=== PATIENT | female | born 1980 | race Caucasian/White ===

== ENCOUNTER 2022-08-12 10:15 | Emergency (ER) | payer OTHER, SELFPAY ==
[2022-08-12 10:22] VITALS: BP 143/87; PULSE 87; RESP 18; TEMP 36.6; O2SAT 98; BMI 44.1
--- NOTE | 2022-08-12 10:26 | CRLHL7_ITS ---
For Patients: As a result of the Century Cures Act, medical imaging exams and procedure reports are released immediately into your electronic medical record. You may view this report before your referring provider. If you have questions, please contact your health care provider. Indication: Injury Technique: A total of three views of the left foot were acquired. Comparison: None Findings: Bones: Nondisplaced intra-articular fracture at the base of the proximal phalanx of the left 5th digit Joint spaces: Unremarkable. Soft tissues: Small plantar dorsal calcaneal spurs Impression: Nondisplaced intra-articular fracture at the base of the proximal phalanx of the left 5th digit. Dictated by Hemanth Elaine MD @ 08/12/2022 10:58:57 AM (Electronically Signed)
[2022-08-12] MEDS: IBUPROFEN 200 MG TABLET 600 MG PO (10:29)
--- NOTE | 2022-08-12 10:47 | ED_ITS ---
HPI - Extremity Injury (Lower) General Chief Complaint: Extremity Pain/Injury, Lower Stated Complaint: Possible broken LT foot pinky toe Time Seen by Provider: 08/12/22 10:25 Source: patient Mode of arrival: ambulatory Limitations: no limitations History of Present Illness HPI Narrative: Patient is a nice 42-year-old female presents here with 5th toe injury on the left side, she was coming down the stairs and rolled her left foot and did up with a left 5th toe injury, she is able to bear weight and walk on her ankle, but it is sore and swollen over the left side of her toe. She is worried she might have fractured. Took some acetaminophen this morning, no numbness and tingling. No other injury. Denies snapping popping sensation. Related Data Home Medications Medication Instructions Recorded Confirmed citalopram .ROUTE 08/12/22 Allergies Allergy/AdvReac Type Severity Reaction Status Date / Time No Known Drug Allergies Allergy Verified 08/12/22 10:24 Review of Systems Status of ROS: Reports: 6 or more systems reviewed and unremarkable except as noted in History and below PFSH PFSH Social History Smoking Status: Current some day smoker What tobacco products do you use: cigarettes Do you use any of these nicotine containing products: None How often do you have a drink containing alcohol: 2-3 times a week AUDIT-C Alcohol total score: 3 Non-prescribed substance use: marijuana (any form) Exam Narrative: Exam Narrative: Examination of the left foot reveals swelling and ecchymosis noted at the base or anterior portion of the left 5th MTP, she is sore but she is able to wiggle it, there is no obvious deformity, or angulation. She is not sore in the midfoot or hindfoot. DP and posterior tibial pulses are normal sensations normal she does not have any evidence of any bleeding. Const: Vital Signs, click to edit/add: Vital Signs - 24 hr 08/12/22 10:22 Temperature 97.9 F Pulse Rate [Right Pulse Oximeter] 87 Respiratory Rate 18 Blood Pressure [Ri ght Upper Arm] 143/87 H Pulse Oximetry 98 Oxygen Delivery Me thod Room Air Documenting provider has reviewed patient's vital signs: yes Course Course Hospital Course: Explained to the patient that this will heal up I would corbin tape it for the next 3 weeks, use the cam walker or postop shoe for the next week or so, elevation and icing would be a recommended today and tomorrow, I would use Tylenol and ibuprofen for the pain. Follow-up will be p.r.n. Vital Signs Vital signs: Initial Vital Signs Temperature 97.9 F 08/12/22 10:22 Temperature Source Temporal Artery Scan 08/12/22 10:22 Pulse Rate 87 08/12/22 10:22 Respiratory Rate 18 08/12/22 10:22 Blood Pressure 143/87 H 08/12/22 10:22 Blood Pressure Mean 105 08/12/22 10:22 Blood Pressure Position Sitting 08/12/22 10:22 Pulse Oximetry 98 08/12/22 10:22 Oxygen Delivery Method 08/12/22 10:22 Vital Signs Temperature 97.9 F 08/12/22 10:22 Pulse Rate 87 08/12/22 10:22 Respiratory Rate 18 08/12/22 10:22 Blood Pressure 143/87 H 08/12/22 10:22 Pulse Oximetry 98 08/12/22 10:22 Oxygen Delivery Method 08/12/22 10:22 Temperature 97.9 F 08/12/22 10:22 Pulse Rate 87 08/12/22 10:22 Respiratory Rate 18 08/12/22 10:22 Blood Pressure 143/87 H 08/12/22 10:22 Pulse Oximetry 98 08/12/22 10:22 Oxygen Delivery Method 08/12/22 10:22 MDM - Extremity Injury (Lower) Medical Records Attestation: I reviewed the patient's medical records. Imaging Data Foot x-ray: Attestation: I have reviewed the pertinent imaging results. My impression: Nondisplaced fracture at the base of the proximal phalanx of the 5th toe. await radiologic over-read Discharge Plan Discharge Clinical Impression: Closed fracture of fifth toe of left foot Patient Disposition: Home w/ Parent or Adult Condition: Stable Instructions: Walking Boot (ED) Additional Instructions: Suggest corbin taping the toe, nurse will show a how this is done. Ice elevation today, and warned the cam walker will help you, this usually takes about 4-6 weeks to improve, really bad only for the 1st 7-10 days. It is nondisplaced in no surgery needs to be done, use of Tylenol ibuprofen, follow-up as needed. Prescriptions: No Action citalopram .ROUTE Stand Alone Forms: [employer] Info Instructions
== END 2022-08-12 11:20 | disposition home or self-care (01) ==
LOC: ED 11:11
PROVIDERS: Emergency Provider Family Medicine
DX: S92.514A Nondisplaced fracture of proximal phalanx of right lesser toe(s), initial encounter for closed fracture (principal); W10.9XXA Fall (on) (from) unspecified stairs and steps, initial encounter
CPT/HCPCS: 73630; 99283; A9270

== ENCOUNTER 2023-05-08 08:14 | Emergency (ER) | payer OTHER, SELFPAY ==
[2023-05-08 08:24] VITALS: BP 120/85; PULSE 73; RESP 18; TEMP 36.2; O2SAT 99; BMI 36.6
--- NOTE | 2023-05-08 08:39 | CRLHL7_ITS ---
For Patients: As a result of the Cures Act, medical imaging exams and procedure reports are released immediately into your electronic medical record. You may view this report before your referring provider. If you have questions, please contact your health care provider. INDICATION: Fall COMPARISON: None. TECHNIQUE: Three views left knee. FINDINGS: BONES: No fracture. Normal mineralization. No focal bone lesion. JOINT: Normal knee joint alignment. Small knee joint effusion. Joint spaces: Normal. Soft Tissues: Anterior soft tissue swelling, more so on the medial margin. No foreign body. IMPRESSION: Small left knee joint effusion and soft tissue swelling. No fracture or dislocation. Dictated by Karlie Lunsford MD @ 05/08/2023 9:09:46 AM (Electronically Signed)
--- NOTE | 2023-05-08 08:40 | ED_ITS ---
HPI - General Adult General Chief complaint: Extremity Pain/Injury, Lower Stated complaint: L knee injury Time Seen by Provider: 05/08/23 08:31 History of Present Illness HPI narrative: Subha is a a thanks 42 year white female presents with falling yesterday on her knee, the patient reports an abrasion over her knee is not short of her last tetanus. The patient has some pain over the back of her knee, no real swelling. She presents for evaluation. Related Data Home Medications Medication Instructions Recorded Confirmed escitalopram oxalate 10 mg tablet 10 mg PO QAM 05/08/23 05/08/23 Allergies Allergy/AdvReac Type Severity Reaction Status Date / Time No Known Drug Allergies Allergy Verified 08/12/22 10:24 Review of Systems Status of ROS: Reports: 6 or more systems reviewed and unremarkable except as noted in History and below PFSH PFS Social History Smoking Status: Current some day smoker What tobacco products do you use: cigarettes Do you use any of these nicotine containing products: None How often do you have a drink containing alcohol: never How often do you have six or more drinks on one occasion: Never AUDIT-C Alcohol total score: 0 Non-prescribed substance use: marijuana (any form) Exam Narrative: Exam Narrative: Objective: The patient is alert or x3 vital signs are and within normal limits Her left knee shows abrasions over the top, no patellar tenderness, no medial lateral joint line tenderness, no instability anterior-posterior drawer Distal CMS appears intact, no proximal fibular tenderness. Const: Vital Signs, click to edit/add: Vital Signs - 24 hr 05/08/23 08:24 Temperature 97.1 F L Pulse Rate [Pulse Oximeter] 73 Respiratory Rate 18 Blood Pressure [Ri ght Upper Arm] 120/85 Pulse Oximetry 99 Oxygen Delivery Me thod Room Air Course Vital Signs Vital signs: Initial Vital Signs Temperature 97.1 F L 05/08/23 08:24 Temperature Source Temporal Artery Scan 05/08/23 08:24 Pulse Rate 73 05/08/23 08:24 Respiratory Rate 18 05/08/23 08:24 Blood Pressure 120/85 05/08/23 08:24 Blood Pressure Mean 96 05/08/23 08:24 Blood Pressure Position Sitting 05/08/23 08:24 Pulse Oximetry 99 05/08/23 08:24 Oxygen Delivery Method Room Air 05/08/23 08:24 Vital Signs Temperature 97.1 F L 05/08/23 08:24 Pulse Rate 73 05/08/23 08:24 Respiratory Rate 18 05/08/23 08:24 Blood Pressure 120/85 05/08/23 08:24 Pulse Oximetry 99 05/08/23 08:24 Oxygen Delivery Method Room Air 05/08/23 08:24 Temperature 97.1 F L 05/08/23 08:24 Pulse Rate 73 05/08/23 08:24 Respiratory Rate 18 05/08/23 08:24 Blood Pressure 120/85 05/08/23 08:24 Pulse Oximetry 99 05/08/23 08:24 Oxygen Delivery Method Room Air 05/08/23 08:24 Medical Decision Making MDM Narrative Medical decision making narrative: 40-year-old female with a fall on her left knee she apparently fell right on her knee. Will check her tetanus status, clean in cleanse the abrasions, will check an x-ray of her knee. Will need a knee immobilizer crutches nonweightbearing, Advil or Tylenol as needed for the next few days and then follow up with orthopedic PA in the next 3-4 days. Addendum 9:06 a.m. the patient's knee x-ray looks negative for fracture or other abnormality. Knee immobilizer, crutches, Advil or Tylenol, keep the wound covered for 24 hours then may use bacitracin topically on the abrasion. Follow- up with ortho as scheduled nonweightbearing until ortho follow-up in 3-4 days. Discharge Plan Discharge Clinical Impression: Left knee pain Patient Disposition: Home w/ Parent or Adult Condition: Stable Additional Instructions: Nonweightbearing, crutches, ibuprofen or Tylenol as needed, knee immobilizer, follow-up with orthopedic physician credentialing assistant within the next 3-5 days. We will make an appointment today. Follow up appointment is scheduled at the [facility] on 05/13 with a 9:50am arrival time. If you have any questions or need to reschedule, please call [phone]. [facility] [address] [place] [address] Activity Level: Light activity Discharge Diet: Regular Prescriptions: No Action escitalopram oxalate 10 mg tablet 10 mg PO QAM Follow Up/Referrals: Provider,Not a Local [Primary Care Provider] - Stand Alone Forms: [employer] Info Instructions
== END 2023-05-08 09:30 | disposition home or self-care (01) ==
PROVIDERS: Emergency Provider Family Medicine
DX: M25.562 Pain in left knee (principal); W19.XXXA Unspecified fall, initial encounter
CPT/HCPCS: 73562; 99283; 99284